=== PATIENT | male | born 1980 | race African-American/Black ===

== ENCOUNTER 2018-05-09 13:34 | Emergency (ER) | payer OTHER ==
[~2018-05-09] VITALS: Ht 193 cm; Wt 181.4 kg
[~2018-05-09 13:34] MED LIST: Amoxicillin875 MG PO; MAGIC MOUTHWASH; Mobic7.5 MG PO; Naprosyn500 MG PO; Prilosec Otc20 MG
[2018-05-09] MEDS ORDERED: METF500C PO (14:27)
[2018-05-09] MEDS ORDERED: Mobic15 MG PO (14:27)
[2018-05-09] MEDS ORDERED: LOSARTAN-HCTZ1 EACH PO (14:27)
[2018-05-09] MEDS ORDERED: Amlodipine Besyl5 MG PO (14:28)
== END 2018-05-09 16:25 | disposition home or self-care (01) ==
LOC: ER 13:34
DX: M79.671 Pain in right foot (principal); M21.42 Flat foot [pes planus] (acquired), left foot; M21.41 Flat foot [pes planus] (acquired), right foot; Z79.899 Other long term (current) drug therapy; Z79.84 Long term (current) use of oral hypoglycemic drugs; I10 Essential (primary) hypertension; Z87.891 Personal history of nicotine dependence
CPT/HCPCS: 76882; 99283-25

== ENCOUNTER 2019-04-06 23:10 | Emergency (ER) | payer OTHER ==
[~2019-04-06] VITALS: Ht 193 cm; Wt 190.5 kg
[~2019-04-06 23:10] MED LIST changes: +Amlodipine Besyl5 MG PO; +LOSARTAN-HCTZ1 EACH PO; +METF500C PO; +Mobic15 MG PO
[2019-04-06] MEDS ORDERED: IBUP800 PO (23:25)
[2019-04-06] MEDS ORDERED: Cleocin HCl300 MG PO (23:25)
== END 2019-04-06 23:43 | disposition home or self-care (01) ==
LOC: ER 23:10
DX: K04.7 Periapical abscess without sinus (principal); I10 Essential (primary) hypertension; M19.90 Unspecified osteoarthritis, unspecified site; F17.210 Nicotine dependence, cigarettes, uncomplicated; Z79.899 Other long term (current) drug therapy
CPT/HCPCS: 99282; A9270

== ENCOUNTER 2019-04-21 13:43 | Emergency (ER) | payer OTHER ==
[~2019-04-21 13:43] MED LIST changes: +Cleocin HCl300 MG PO; +IBUP800 PO
== END 2019-04-21 13:58 | disposition home or self-care (01) ==
LOC: ER 13:43
DX: Z53.21 Procedure and treatment not carried out due to patient leaving prior to being seen by health care provider (principal)